=== PATIENT | female | born 1990 | race Caucasian/White ===

== ENCOUNTER 2018-03-17 11:15 | Inpatient (IN) | payer BC ==
--- NOTE | 2018-03-17 14:23 | US ---
Biophysical profile: Multiple real-time images were obtained. Comparison: Previous obstetrical ultrasounds are available, most recent exam is 03/16/18. Dates: Current ultrasound: BELINDA 04/08/18, gestational age 36 weeks 6 days Earliest ultrasound (11/29/17): BELINDA 04/16/18, gestational age 35 weeks 5 days presentation: Cephalic Placenta: Anterior Amniotic fluid: MALINI 15.0 cm Measurements: BPD: 9.09 cm - 37 weeks 0 days Head circumference: 32.92 cm - 37 weeks 4 days Abdominal circumference: 32.24 cm - 36 weeks 2 days Femur length: 7.07 cm - 36 weeks 2 days Estimated weight: 2927 g (6 lbs. 7 oz.), estimated weight at the 43rd percentile for age by current ultrasound Heart rate: 156 BPM Cervical length: Not seen, not measured Biophysical profile: movement 0, breathing movement 0, tone 0, amniotic fluid volume 2 Impression: 1. Single intrauterine fetus currently cephalic in presentation. Dates as noted above. 2. 2 out of 8 on biophysical profile. Diagnostic code #5 I have a technologist's note stating preliminary report given to nurse
[2018-03-17] MEDS ORDERED: Sodium Chloride 0.9% 10 ML Syringe FLUSH PRN (14:56)
[2018-03-17] MEDS ORDERED: Oxytocin/Lactated Ringers 10 UNIT/1,000 ML BAG IV SCH ×3 (15:00→18:10)
[2018-03-17] MEDS ORDERED: Lactated Ringers 1,000 ML IV SCH ×4 (15:00→23:15)
[2018-03-17] MEDS ORDERED: Nalbuphine 20 MG/ML 1 ML Syringe IVPUSH PRN (15:41)
[2018-03-17] MEDS ORDERED: Metoclopramide 10 MG/2 ML SDV IVPUSH ONE (15:41)
[2018-03-17] MEDS ORDERED: Citric Acid/Sodium Citrate Solution 30 ML Cup PO ONE (15:41)
[2018-03-17] MEDS ORDERED: Metoclopramide 10 MG/2 ML SDV ONE (15:41)
[2018-03-17] MEDS ORDERED: Citric Acid/Sodium Citrate Solution 30 ML Cup ONE (15:41)
--- NOTE | 2018-03-17 15:53 | PCM.PREANE ---
Preanesthetic Assessment - Anesthesia/Transfusion/Family Hx Anesthesia History: Prior Anesthesia Without Reaction Family History of Anesthesia Reaction: No Transfusion History: No Prior Transfusion(s) Intubation History: Unknown - Review of Systems General: No Symptoms Pulmonary: No Symptoms (Exercise induced asthma) Cardiovascular: No Symptoms (PIH) Gastrointestinal: No Symptoms (GERD), Constipation Neurological: No Symptoms Other: Reports: Thyroid Problems (hypothyroid), Sinus Problem (seasonal allergies), Anxiety - Physical Assessment NPO Status Date: 03/17/18 NPO Status Time: 11:00 Pulse: 78 O2 Sat by Pulse Oximetry: 99 Respiratory Rate: 20 Blood Pressure: 150/91 Temperature: 36.5 C Vital Signs: Last Vital Signs Temp 36.3 C 03/17/18 11:53 Pulse 78 03/17/18 14:01 Resp BP 150/91 H 03/17/18 14:01 Pulse Ox Height: 1.75 m Weight: 102.512 kg ASA Class: 2E Mental Status: Alert & Oriented x3 Airway Class: Mallampati = 2 Dentition: Reports: Normal Dentition, Caries Thyro-Mental Finger Breadths: 3 Mouth Opening Finger Breadths: 3 ROM/Head Extension: Full Lungs: Clear to Auscultation, Normal Respiratory Effort Cardiovascular: Regular Rate, Regular Rhythm, No Murmurs - Lab Values: Laboratory Last Values WBC 16.71 K/mm3 (3.98-10.04) H 03/17/18 15:10 RBC 3.90 M/mm3 (3.98-5.22) L 03/17/18 15:10 Hgb 11.3 gm/L (11.2-15.7) 03/17/18 15:10 Hct 33.6 % (34.1-44.9) L 03/17/18 15:10 MCV 86.2 fl (79.4-94.8) 03/17/18 15:10 MCH 29.0 pg (25.6-32.2) 03/17/18 15:10 MCHC 33.6 g/dl (32.2-35.5) 03/17/18 15:10 RDW Std Deviation 40.9 fL (36.4-46.3) 03/17/18 15:10 Plt Count 376 K/mm3 (182-369) H 03/17/18 15:10 MPV 9.6 fl (9.4-12.3) 03/17/18 15:10 Neut % (Auto) 70.7 % (34.0-71.1) 03/17/18 15:10 Lymph % (Auto) 17.1 % (19.3-51.7) L 03/17/18 15:10 [place] % (Auto) 9.4 % (4.7-12.5) 03/17/18 15:10 Eos % (Auto) 0.4 (0.7-5.8) L 03/17/18 15:10 Baso % (Auto) 0.1 % (0.1-1.2) 03/17/18 15:10 Neut # (Auto) 11.82 K/mm3 (1.56-6.13) H 03/17/18 15:10 Lymph # (Auto) 2.85 K/mm3 (1.18-3.74) 03/17/18 15:10 [place] # (Auto) 1.57 K/mm3 (0.24-0.36) H 03/17/18 15:10 Eos # (Auto) 0.06 K/mm3 (0.04-0.36) 03/17/18 15:10 Baso # (Auto) 0.02 K/mm3 (0.01-0.08) 03/17/18 15:10 Manual Slide Review Normal smear 03/17/18 15:10 Sodium 138 mEq/L (136-145) 03/17/18 15:10 Potassium 3.8 mEq/L (3.5-5.1) 03/17/18 15:10 Chloride 103 mEq/L (98-107) 03/17/18 15:10 Carbon Dioxide 21 mEq/L (21-32) 03/17/18 15:10 Anion Gap 17.8 (5-15) H 03/17/18 15:10 BUN 10 mg/dL (7-18) 03/17/18 15:10 Creatinine 0.8 mg/dL (0.55-1.02) 03/17/18 15:10 Est Cr Clr Drug Dosing 111.37 mL/min 03/17/18 15:10 Estimated GFR (MDRD) > 60 mL/min (>60) 03/17/18 15:10 BUN/Creatinine Ratio 12.5 (14-18) L 03/17/18 15:10 Glucose 90 mg/dL (74-106) 03/17/18 15:10 Calcium 9.7 mg/dL (8.5-10.1) 03/17/18 15:10 Total Bilirubin 0.3 mg/dL (0.2-1.0) 03/17/18 15:10 AST 20 U/L (15-37) 03/17/18 15:10 ALT 20 U/L (14-59) 03/17/18 15:10 Alkaline Phosphatase 102 U/L (46-116) 03/17/18 15:10 Total Protein 7.0 g/dl (6.4-8.2) 03/17/18 15:10 Albumin 3.1 g/dl (3.4-5.0) L 03/17/18 15:10 Globulin 3.9 gm/dL 03/17/18 15:10 Albumin/Globulin Ratio 0.8 (1-2) L 03/17/18 15:10 Above labs reviewed and noted and within acceptable ranges to proceed with procedure. - Allergies Allergies/Adverse Reactions: Allergies Allergy/AdvReac Type Severity Reaction Status Date / Time Penicillins Allergy Rash Verified 08/04/14 19:34 - Anesthesia Plan Pre-Op Medication Ordered: Beta Brianna Beta Brianna: Labetalol Med Last Dose Date: 03/17/18 Med Last Dose Time: 11:00 - Acknowledgements Anesthesia Type Planned: Spinal Pt an Appropriate Candidate for the Planned Anesthesia: Yes Alternatives and Risks of Anesthesia Discussed w Pt/Guardian: Yes Pt/Guardian Understands and Agrees with Anesthesia Plan: Yes PreAnesthesia Questionnaire Other Endocrine/Metabolic History: Hypothyroidism - HOME MEDS Home Medications: Home Meds Albuterol [Ventolin HFA] 2 puff INH ASDIRECTED PRN 08/04/14 [History] Levothyroxine 88 mcg PO ACBREAKFAST 08/04/14 [History] Loratadine [Claritin] 10 mg PO DAILY 08/04/14 [History] Labetalol [Normodyne] 200 mg PO TID 03/16/18 [History] - CURRENT (IN HOUSE) MEDS Current Meds: Current Medications Lactated Ringer's (Ringers, Lactated) 1,000 mls @ 40 mls/hr IV ASDIRECTED IRAM Oxytocin/Lactated Ringer's (Pitocin In Lr 10 Units/1,000 Ml) 10 unit in 1,000 mls @ 12 mls/hr IV TITRATE IRAM; Protocol Lactated Ringer's (Ringers, Lactated) 1,000 mls @ 125 mls/hr IV ASDIRECTED IRAM Oxytocin/Lactated Ringer's (Pitocin In Lr 10 Units/1,000 Ml) 10 unit in 1,000 mls @ 100 mls/hr IV ASDIRECTED IRAM Misoprostol (Cytotec) 25 mcg PO BID IRAM Nalbuphine HCl (Nubain) 10 mg IVPUSH Q2H PRN PRN Reason: pain Sodium Chloride (Saline Flush) 10 ml FLUSH ASDIRECTED PRN PRN Reason: Keep Vein Open Discontinued Medications Citric Acid/Sodium Citrate (Bicitra Solution) Confirm Administered Dose 30 ml .ROUTE .STK-MED ONE Stop: 03/17/18 15:42 Citric Acid/Sodium Citrate (Bicitra Solution) 30 ml PO ONETIME ONE Stop: 03/17/18 15:42 Metoclopramide HCl (Reglan) Confirm Administered Dose 10 mg .ROUTE .STK-MED ONE Stop: 03/17/18 15:42 Metoclopramide HCl (Reglan) 10 mg IVPUSH ONETIME ONE Stop: 03/17/18 15:42
--- NOTE | 2018-03-17 16:05 | PCM.LDHP ---
L&D History of Present Illness - General Date of Service: 03/17/18 Admit Problem/Dx: Patient Status Order with Admit Dx/Problem 03/17/18 14:30 Patient Status [ADT] Routine Admission Diagnosis/Problem Admission Diagnosis/Problem complications Source of Information: Patient History Limitations: Reports: No Limitations - History of Present Illness Introduction:: Corinna Polanco is a 27 year old at 35 weeks 3 days by LMP consistent with 11 week ultrasound who initially presented for continued monitoring in the setting of gestational hypertension. She had a biophysical profile and NST that returned with scores of 2/10 with the only points given for MALINI. Patient reports that she has had subjective decreased movement throughout the day today but had good movement last evening. She denies any contractions today. Denies any leaking of fluid or vaginal bleeding. Patient desired to proceed with delivery and desired section after given her options for delivery. Timing/Duration: Reports: getting worse ( monitoring becoming nonreassuring with BPP with NST score of 2/10) Improves with: Reports: None Worsens with: Reports: None Associated Symptoms: Denies: vaginal bleeding, vaginal discharge, vaginal fluid Present Illness Comments:: Corinna Polanco is a 27-year-old at 35 weeks 3 days by LMP consistent with 11 week ultrasound (BELINDA 04/18/2018) with nonreassuring monitoring. She has had routine care with Dr. Segura since 11 weeks gestational age. Review of her labs shows B- blood type with negative antibody screen. Her hematocrit was 37.6 with hemoglobin of 13.5 and platelets of 297 on 2017. She is rubella immune. Her RPR, hepatitis B surface antigen and HIV were all negative. Her urine culture was negative for urinary tract infection but did show contamination. Her gonorrhea and Chlamydia test were both negative. Her TSH was 2.134 on 09/27/2017. Her anatomy ultrasound was normal on 12/01/2017 but did show a low-lying placenta. On follow-up the placenta was in normal position and not low lying. Her 1 hour glucose test was normal at 97. Her hematocrit was 35.3 and hemoglobin of 12.0 with platelets of 299 on . She was given RhoGAM injection on 01/23/2018 due to her Rh- status. Her GBS was positive on evaluation from 03/16/2018. She started to have increased blood pressures at her appointment with Dr. Segura on 03/14/2018 and she was started on labetalol after evaluation. She was seen the next day on 03/15 and had an increase in dose of her labetalol to 200 mg 3 times daily. This is her first . Her has been complicated by: * Nonreassuring monitoring with gestational hypertension at 35 weeks gestational age * Rh- status with B- blood type. Received RhoGAM on 01/23/2018. * GBS positive on swab from 03/16/2018 * Hypothyroidism on levothyroxine 88 mcg daily - Related Data Allergies/Adverse Reactions: Allergies Allergy/AdvReac Type Severity Reaction Status Date / Time Penicillins Allergy Rash Verified 08/04/14 19:34 Home Medications: Home Meds Albuterol [Ventolin HFA] 2 puff INH ASDIRECTED PRN 08/04/14 [History] Levothyroxine 88 mcg PO ACBREAKFAST 08/04/14 [History] Loratadine [Claritin] 10 mg PO DAILY 08/04/14 [History] Labetalol [Normodyne] 200 mg PO TID 03/16/18 [History] Past Medical History : 1 Para: 0 Other Endocrine/Metabolic History: Hypothyroidism - Past Surgical History HEENT Surgical History: Reports: Naso-Sinus Surgery (Rhinoplasty for deviated septum), Tonsillectomy, Other (See Below) ([place] tooth extraction) Social & Family History - Tobacco Use Smoking Status *Q: Never Smoker - Tobacco Core Measures Tobacco Use/Smoking Within Last 30 Days: No Smokeless Tobacco Use in Last 30 Days: No - Alcohol Use Alcohol Use History: No - Recreational Drug Use Recreational Drug Use: No Drug Use in Last 12 Months: No - Living Situation & Occupation Living situation: Reports: , with Spouse H&P Review of Systems - Review of Systems: Review Of Systems: See Below General: Denies: Fever, Chills, Malaise, Weakness, Fatigue HEENT: Reports: Sinus Congestion. Denies: Headaches, Rhinitis, Post Nasal Drip , Sore Throat, Visual Changes Pulmonary: Denies: Shortness of Breath, Wheezing, Cough Cardiovascular: Denies: Chest Pain, Palpitations, Dyspnea on Exertion, Orthopnea Gastrointestinal: Reports: Constipation. Denies: Abdominal Pain, Diarrhea, Nausea, Vomiting Genitourinary: Denies: Dysuria, Frequency, Burning, Pain, Urgency Musculoskeletal: Denies: Back Pain, Joint Pain, Muscle Pain Skin: Denies: Rash, Lesions Psychiatric: Reports: Anxiety (Not requiring medications). Denies: Depression Hematologic/Lymphatic: Denies: Anemia L&D Exam - Exam Exam: See Below - Vital Signs Vital Signs: Last Vital Signs Temp 36.3 C 03/17/18 11:53 Pulse 78 03/17/18 15:52 Resp 20 03/17/18 15:52 BP 150/91 H 03/17/18 15:52 Pulse Ox 99 03/17/18 15:52 Weight: 102.512 kg - OB Specific Contraction Duration (sec): 30-45 Contraction Frequency (min): irregular Contraction Intensity: Mild Movement: Not Appreciated Heart Tones: Present Heart Tones per Min: 155 (No accelerations, occasional decelerations not in relation to contractions) Heart Rate (FHR) Variability: Minimal (0-5 bpm) Presentation: Vertex Estimated Weight: 6 pounds by Andrea's - Exam General: Alert, Oriented HEENT: Conjunctiva Clear, EOMI Neck: Supple, Trachea Midline Lungs: Clear to Auscultation, Normal Respiratory Effort Cardiovascular: Regular Rate, Regular Rhythm GI/Abdominal Exam: Soft, Non-Tender, No Distention, Other (gravid). No: Guarding, Rigid, Rebound Genitourinary: Other (Deferred pelvic exam) Extremities: Pedal Edema (1+) Skin: Warm, Dry, Intact Psychiatric: Alert, Normal Affect, Normal Mood - Patient Data Lab Results Last 24 hrs: Laboratory Results - last 24 hr 03/17/18 03/17/18 03/17/18 Range/Units 15:10 15:10 15:10 WBC 16.71 H (3.98-10.04) K/mm3 RBC 3.90 L (3.98-5.22) M/mm3 Hgb 11.3 (11.2-15.7) gm/L Hct 33.6 L (34.1-44.9) % MCV 86.2 (79.4-94.8) fl MCH 29.0 (25.6-32.2) pg MCHC 33.6 (32.2-35.5) g/dl RDW Std Deviation 40.9 (36.4-46.3) fL Plt Count 376 H (182-369) K/mm3 MPV 9.6 (9.4-12.3) fl Neut % (Auto) 70.7 (34.0-71.1) % Lymph % (Auto) 17.1 L (19.3-51.7) % [place] % (Auto) 9.4 (4.7-12.5) % Eos % (Auto) 0.4 L (0.7-5.8) Baso % (Auto) 0.1 (0.1-1.2) % Neut # (Auto) 11.82 H (1.56-6.13) K/mm3 Lymph # (Auto) 2.85 (1.18-3.74) K/mm3 [place] # (Auto) 1.57 H (0.24-0.36) K/mm3 Eos # (Auto) 0.06 (0.04-0.36) K/mm3 Baso # (Auto) 0.02 (0.01-0.08) K/mm3 Manual Slide Review Normal smear Sodium 138 (136-145) mEq/L Potassium 3.8 (3.5-5.1) mEq/L Chloride 103 (98-107) mEq/L Carbon Dioxide 21 (21-32) mEq/L Anion Gap 17.8 H (5-15) BUN 10 (7-18) mg/dL Creatinine 0.8 (0.55-1.02) mg/dL Est Cr Clr Drug Dosing 111.37 mL/min Estimated GFR (MDRD) > 60 (>60) mL/min BUN/Creatinine Ratio 12.5 L (14-18) Glucose 90 (74-106) mg/dL Calcium 9.7 (8.5-10.1) mg/dL Total Bilirubin 0.3 (0.2-1.0) mg/dL AST 20 (15-37) U/L ALT 20 (14-59) U/L Alkaline Phosphatase 102 (46-116) U/L Total Protein 7.0 (6.4-8.2) g/dl Albumin 3.1 L (3.4-5.0) g/dl Globulin 3.9 gm/dL Albumin/Globulin Ratio 0.8 L (1-2) Blood Type B NEGATIVE Gel Antibody Screen Positive Result Diagrams: 03/17/18 15:10 03/17/18 15:10 Imaging Impressions Last 24 hrs: Biophysical profile 04/20 with only points given for MALINI - Problem List (1) 35 weeks gestation of SNOMED Code(s): 40961967 ICD Code: Z3A.35 - 35 WEEKS GESTATION OF Status: Acute Current Visit: Yes (2) Non-reassuring electronic monitoring tracing SNOMED Code(s): 131186832 ICD Code: O76 - ABNLT IN HEART RATE AND RHYTHM COMP LABOR AND DELIVERY Status: Acute Current Visit: Yes (3) Abnormal test SNOMED Code(s): 048910163 ICD Code: O28.9 - UNSP ABNORMAL FINDINGS ON SCREENING OF MOTHER Status: Acute Current Visit: Yes (4) Hypothyroid SNOMED Code(s): 43620288 ICD Code: E03.9 - HYPOTHYROIDISM, UNSPECIFIED Status: Acute Current Visit : Yes (5) Gestational hypertension SNOMED Code(s): 446670779, 635212026 ICD Code: O13.9 - GESTATIONAL HTN W/O SIGNIFICANT PROTEINURIA, UNSP TRIMESTER Status: Acute Current Visit: Yes Problem List Initiated/Reviewed/Updated: Yes Orders Last 24hrs: Active Orders 24 hr Category Date Time Status Patient Status [ADT] Routine ADT 03/17/18 14:30 Active Communication Order [RC] ASDIRECTED Care 03/17/18 14:57 Active Communication Order [RC] ASDIRECTED Care 03/17/18 14:57 Active Communication Order [RC] ASDIRECTED Care 03/17/18 14:57 Active Communication Order [RC] ROUTINE Care 03/17/18 15:42 Active Monitoring [RC] INTERMITTENT Care 03/17/18 14:57 Active Non Stress Test [RC] PER UNIT ROUTINE Care 03/17/18 14:57 Active Notify Provider [RC] ASDIRECTED Care 03/17/18 14:57 Active Peripheral IV Care [RC] . DIRECTED Care 03/17/18 14:57 Active Procedure Site Prep Instruct [RC] ASDIRECTED Care 03/17/18 15:42 Active Vaginal Exam [RC] ASDIRECTED Care 03/17/18 14:57 Active Verify Patient Consent Obtain [RC] PER UNIT ROUTINE Care 03/17/18 15:42 Active Vital Signs [RC] ASDIRECTED Care 03/17/18 14:57 Active Clear Liquid Diet [DIET] Diet 03/17/18 Breakfast Active ANTIBODY IDENTIFICATION [BBK] Routine Lab 03/17/18 15:10 Results PROTEIN/CREATININE RATIO,URINE [URCHEM] Routine Lab 03/17/18 14:59 Ordered TYPE AND SCREEN [BBK] Routine Lab 03/17/18 15:10 Results Lactated Ringers [Ringers, Lactated] 1,000 ml Med 03/17/18 15:00 Active IV ASDIRECTED Lactated Ringers [Ringers, Lactated] 1,000 ml Med 03/17/18 15:45 Active IV ASDIRECTED Nalbuphine [Nubain] Med 03/17/18 15:41 Active 10 mg IVPUSH Q2H PRN Oxytocin/Lactated Ringers [Pitocin in LR 10 Units/1,000 Med 03/17/18 15:45 Active ML] 10 unit in 1,000 ml IV ASDIRECTED Oxytocin/Lactated Ringers [Pitocin in LR 10 Units/1,000 Med 03/17/18 15:00 Active ML] 10 unit in 1,000 ml IV TITRATE Sodium Chloride 0.9% [Saline Flush] Med 03/17/18 14:56 Active 10 ml FLUSH ASDIRECTED PRN miSOPROStol [Cytotec] Med 03/17/18 21:00 Active 25 mcg PO BID Peripheral IV Insertion Adult [OM.PC] Routine Oth 03/17/18 14:57 Ordered Peripheral IV Insertion Adult [OM.PC] Routine Oth 03/17/18 15:42 Ordered Schedule Procedure [COMM] Per Unit Routine Oth 03/17/18 15:42 Ordered Medication Orders Lactated Ringer's (Ringers, Lactated) 1,000 mls @ 40 mls/hr IV ASDIRECTED IRAM Oxytocin/Lactated Ringer's (Pitocin In Lr 10 Units/1,000 Ml) 10 unit in 1,000 mls @ 12 mls/hr IV TITRATE IRAM; Protocol Lactated Ringer's (Ringers, Lactated) 1,000 mls @ 125 mls/hr IV ASDIRECTED IRAM Oxytocin/Lactated Ringer's (Pitocin In Lr 10 Units/1,000 Ml) 10 unit in 1,000 mls @ 100 mls/hr IV ASDIRECTED IRAM Misoprostol (Cytotec) 25 mcg PO BID IRAM Nalbuphine HCl (Nubain) 10 mg IVPUSH Q2H PRN PRN Reason: pain Sodium Chloride (Saline Flush) 10 ml FLUSH ASDIRECTED PRN PRN Reason: Keep Vein Open Assessment/Plan Comment:: 27-year-old at 35 weeks 3 days by LMP with nonreassuring testing with BPP and NST score of 2/10 with only points given for MALINI. Discussed with patient that given she has had low testing score would recommend for delivery. Discussed options with patient including induction of labor with plan for vaginal delivery, contraction stress testing or urgent delivery and the patient desires to proceed with delivery. We will get everything in place for delivery. Discussed risks, benefits and alternatives for the section and patient desired to proceed with section. Consents were signed in the room on labor and delivery. Admit to inpatient following section for nonreassuring testing Continuous monitoring Place IV and have Lactated Ringer's at 125 ml/hr Nothing by mouth Activity as tolerated Plan for spinal for anesthesia Plans to breast-feed after delivery Will give Ancef 2 g IV prior to surgery if no reaction to test dose Anticipate delivery due to nonreassuring testing Aron Luna M.D. 4:14 PM 03/17/2018
[2018-03-17] MEDS ORDERED: ceFAZolin 1 GM Vial ONE (16:18)
[2018-03-17] MEDS ORDERED: Lidocaine 1% 4 ML ONE (16:18)
[2018-03-17] MEDS ORDERED: Morphine PF 1 MG/ML Amp ONE (16:18)
[2018-03-17] MEDS ORDERED: Oxytocin 10 Units/1 ML SDV ONE (16:18)
[2018-03-17] MEDS ORDERED: Bupivacaine 0.75%/D5W 2 ML Amp ONE (16:18)
[2018-03-17] MEDS ORDERED: Ketorolac 30 MG/ML SDV ONE (16:18)
[2018-03-17] MEDS ORDERED: Lactated Ringers 2,000 ML ONE (16:18)
[2018-03-17] MEDS ORDERED: Phenylephrine/Normal Saline 100 MCG/ML 10 ML Syringe ONE (16:18)
[2018-03-17] MEDS ORDERED: Ondansetron 4 MG/2 ML SDV ONE (16:18)
[2018-03-17] MEDS ORDERED: Bupivacaine 0.5% 30 ML SDV ONE (16:26)
[2018-03-17] MEDS ORDERED: fentaNYL 100 MCG/2 ML SDV IVPUSH PRN (16:39)
[2018-03-17] MEDS ORDERED: ePHEDrine 50 MG/ML SDV IVPUSH PRN ×2 (16:39→18:10)
[2018-03-17] MEDS ORDERED: Ondansetron 4 MG/2 ML SDV IVPUSH PRN (16:39)
[2018-03-17] MEDS ORDERED: HYDROmorphone 0.5 MG/0.5 ML Syringe IVPUSH PRN (16:39)
[2018-03-17] MEDS ORDERED: diphenhydrAMINE 50 MG/ML SDV IVPUSH PRN ×2 (16:39→18:10)
[2018-03-17] MEDS ORDERED: Phenylephrine 1 MG in Sodium Chloride 0.9% 10 ML IV SCH (16:45)
--- NOTE | 2018-03-17 17:30 | PCM.POSTAN ---
POST ANESTHESIA ASSESSMENT - MENTAL STATUS Mental Status: Alert - VITAL SIGNS Pulse Rate: 72 SaO2: 98 Resp Rate: 12 Blood Pressure: 128/80 Temperature: 36.8 C - RESPIRATORY Respiratory Status: Respiratory Rate WNL, Airway Patent, O2 Saturation Stable - CARDIOVASCULAR CV Status: Pulse Rate WNL, Blood Pressure Stable - GASTROINTESTINAL GI Status: No Symptoms - POST OP HYDRATION Hydration Status: Adequate & Stable
--- NOTE | 2018-03-17 17:46 | PCM.OPNOTE ---
- General Post-Op/Procedure Note Date of Surgery/Procedure: 03/17/18 Operative Procedure(s): Primary low transverse section with double layer closure Findings: Live female delivered in vertex presentation with vacuum assistance at 1646. Apgars of 8 and 9. Weight of 2740 g (6 lbs. 1 oz.). Normal-appearing uterus, bilateral fallopian tubes and ovaries. Pre Op Diagnosis: 35 weeks 3 days with abnormal testing with BPP/NST score of 2/10 and the patient desires primary section for delivery Post-Op Diagnosis: Same Anesthesia Technique: Spinal Primary Surgeon: Aron Luna Anesthesia Provider: Shahnaz Hager Flare Man: David Ruiz Flare Man: Glen Alfred (Mal Alfred PAS) Reason Flare Man Was Necessary: Patient safety and reduction of morbidity and mortality Role of Flare Man: Retraction and visualization of surgical field Pathology: Placenta Fluid Replacement, Intraop: 1,400 Output, Urine Amount: 150 EBL in mLs: 1,000 Complications: None Condition: Good Free Text/Narrative:: Procedure in Detail: The patient was seen on labor and delivery after she had abnormal testing with BPP/NST with a score of 2/10. Discussed the severity of these abnormal testing scores and risk associated with this. Discussed options including induction of labor for vaginal delivery, contraction stress testing to help and assist in decision or primary section. Patient desired to proceed with primary section and the risks , benefits and complications were discussed with the patient. The patient desired to proceed with section and appropriate consents were signed. The patient was taken to operating room #1. A Time Out was held and the patient was identified using 2 identifiers and the procedure was confirmed. The patient was given spinal anesthesia and was placed in dorsal supine position with leftward tilt. The patient was prepped and draped in the usual sterile manner. She was given a test dose of Ancef and tolerated this injection. She was given Ancef 2 g IV for antibiotic prophylaxis. The abdominal skin was tested and the spinal anesthesia was found to be adequate. The skin was injected with 0.5% marcaine for local anesthesia. A Pfannenstiel skin incision was made and carried down through the subcutaneous tissue to the fascia with the scapel. The fascia was nicked in the midline using a scalpel and the fascial incision was extended transversely with Kim scissors. The superior aspect of the fascia was grasped with Kimmie clamps and tented upwards. The fascia was from the underlying rectus muscle bluntly and sharply with Kim scissors. Attention was then turned to the inferior aspect of the fascia and was grasped using Kimmie clamps and tented upwards. The underlying rectus muscle was dissected off bluntly and sharply with Kim scissors. The peritoneum was identified and entered bluntly. The bladder blade was inserted and the lower uterine segment was identified. A low transverse uterine incision was made sharply with a scalpel and extended laterally bluntly. The infant's head was brought to the uterine incision, the bladder blade was removed and the infant was delivered atraumatically with use of bulb type vacuum extraction. The vacuum extractor had one pop off. On application of the bulb vacuum extractor the second time the infant's head was able to be delivered without difficulty. The vacuum pressure was within normal limits for the entirety of the use of the vacuum extractor. The vacuum extractor was applied for approximately 60 seconds total. On 03/17/2018 a live female infant was delivered in vertex position at 1646, wt of 2740 grams, 6 pounds and 1 ounces. APGARS were 8 & 9. The nose and mouth were suctioned with bulb suction, the cord was doubly clamped and cut and was transferred to the awaiting children's program coordinator. The placenta was removed intact and appeared normal with a three vessel cord. The uterus was exteriorized and the uterine cavity was cleaned using lap sponges. The hysterotomy was closed with a running locked suture of 0-Vicryl. A second suture of 0-Vicryl was used to imbricate the hysterotomy. The hysterotomy was noted to have some bleeding near the left corner of the hysterotomy. A [id number] suture with 0 Vicryl was placed and there continued be small amount of bleeding. A second [id number] suture was placed with 0 Vicryl and the bleeding was stopped at this time. The remainder of the hysterotomy was hemostatic. The uterus, tubes and ovaries appeared overall normal. The uterus was then returned into the abdominal cavity. The hysterotomy was noted to remain hemostatic inside the abdominal cavity. The fascia was noted to be hemostatic and the fascia was then reapproximated with running sutures of 0-Vicryl. The skin was reapproximated using 4-0 Monocryl and Steri-strips were applied over the incision. Instrument, sponge, and needle counts were correct prior to the abdominal closure and at the conclusion of the case.
[2018-03-17] MEDS ORDERED: Lanolin 100% Cream 7 GM Tube TOP PRN (18:10)
[2018-03-17] MEDS ORDERED: Magnesium Hydroxide 400 MG/5 ML Susp 30 ML Cup PO PRN (18:10)
[2018-03-17] MEDS ORDERED: Naloxone 0.4 MG/ML SDV IVPUSH PRN (18:10)
[2018-03-17] MEDS ORDERED: Ondansetron 4 MG/2 ML SDV IV PRN (18:10)
[2018-03-17] MEDS ORDERED: Misoprostol 25 MCG (1/4 of 100 MCG) Tab PO SCH (21:00)
[2018-03-17] MEDS: Ketorolac 30 MG/ML SDV IVPUSH SCH (23:10)
[2018-03-18] MEDS: Ketorolac 30 MG/ML SDV IVPUSH SCH ×2 (04:55→11:01)
[2018-03-18] MEDS: Docusate Sodium 100 MG Cap PO SCH ×3 (08:18→18:30)
[2018-03-18] MEDS: LEVOTHYROXINE 88 MCG PO SCH (08:30)
[2018-03-18] MEDS: Prenatal Multivitamin with Calcium/Folic Acid/Iron Tab PO SCH (08:37)
--- NOTE | 2018-03-18 10:57 | PCM.SN ---
- Free Text/Narrative Note: Post Operative Progress Note POD # 1 Subjective: Doing well overall. Not yet ambulating but has started at the bedside without difficulty. Lochia minimal. Styles draining clear urine. Not passing flatus at this time. Tolerating regular diet without nausea or vomiting. Pain controlled with IV medications. She has not yet transitioned to oral medications. Breast feeding with minimal difficulty. Objective: Vitals: Vital Signs - 24 hr 03/17/18 03/17/18 03/17/18 11:53 12:06 12:31 Temperature Temperature [ 36.3 C Temporal] Pulse, 89 82 Peripheral Pulse, 76 Peripheral [ Brachial] Respiratory Rate Blood Pressure Blood Pressure [Right Upper Arm] O2 Sat by Pulse Oximetry O2 Sat by Pulse Oximetry [Room Air] 03/17/18 03/17/18 03/17/18 13:01 13:30 14:01 Temperature Temperature [ Temporal] Pulse, 80 81 78 Peripheral Pulse, Peripheral [ Brachial] Respiratory Rate Blood Pressure 142/91 H 138/91 H 150/91 H Blood Pressure [Right Upper Arm] O2 Sat by Pulse Oximetry O2 Sat by Pulse Oximetry [Room Air] 03/17/18 03/17/18 03/17/18 14:30 15:00 15:30 Temperature Temperature [ Temporal] Pulse, 95 92 99 Peripheral Pulse, Peripheral [ Brachial] Respiratory Rate Blood Pressure 164/111 H 155/95 H 154/104 H Blood Pressure [Right Upper Arm] O2 Sat by Pulse Oximetry O2 Sat by Pulse Oximetry [Room Air] 03/17/18 03/17/18 03/17/18 16:02 16:04 17:20 Temperature 36.5 C Temperature [ 36.8 C Temporal] Pulse, 95 78 Peripheral Pulse, Peripheral [ Brachial] Respiratory 20 12 Rate Blood Pressure 150/91 H Blood Pressure 128/80 [Right Upper Arm] O2 Sat by Pulse 99 98 Oximetry O2 Sat by Pulse 98 Oximetry [Room Air] 03/17/18 03/17/18 03/17/18 17:30 17:30 17:45 Temperature 36.8 C Temperature [ Temporal] Pulse, 72 Peripheral Pulse, Peripheral [ Brachial] Respiratory 18 12 14 Rate Blood Pressure 128/80 Blood Pressure 131/76 128/81 [Right Upper Arm] O2 Sat by Pulse 98 98 98 Oximetry O2 Sat by Pulse Oximetry [Room Air] 03/17/18 03/17/1803/17/19 18:00 18:15 18:36 Temperature 36.6 C Temperature [ 36.9 C Temporal] Pulse, 63 Peripheral Pulse, Peripheral [ Brachial] Respiratory 20 16 Rate Blood Pressure 132/86 Blood Pressure 128/83 131/78 [Right Upper Arm] O2 Sat by Pulse 99 99 100 Oximetry O2 Sat by Pulse Oximetry [Room Air] 03/17/18 03/17/18 03/17/18 19:01 19:06 19:08 Temperature Temperature [ Temporal] Pulse, 74 74 81 Peripheral Pulse, Peripheral [ Brachial] Respiratory 14 Rate Blood Pressure 134/91 H 135/85 Blood Pressure [Right Upper Arm] O2 Sat by Pulse 100 100 100 Oximetry O2 Sat by Pulse Oximetry [Room Air] 03/17/18 03/17/18 03/17/18 20:00 21:00 22:00 Temperature 36.7 C Temperature [ Temporal] Pulse, 68 Peripheral Pulse, Peripheral [ Brachial] Respiratory 16 14 14 Rate Blood Pressure 138/83 Blood Pressure [Right Upper Arm] O2 Sat by Pulse 100 100 98 Oximetry O2 Sat by Pulse Oximetry [Room Air] 03/17/18 03/18/18 03/18/18 23:00 00:00 01:00 Temperature Temperature [ 37.0 C Temporal] Pulse, Peripheral Pulse, 64 Peripheral [ Brachial] Respiratory 15 14 13 Rate Blood Pressure Blood Pressure 129/67 [Right Upper Arm] O2 Sat by Pulse 99 98 100 Oximetry O2 Sat by Pulse Oximetry [Room Air] 03/18/18 03/18/18 03/18/18 02:00 03:00 04:00 Temperature Temperature [ Temporal] Pulse, Peripheral Pulse, Peripheral [ Brachial] Respiratory 14 15 16 Rate Blood Pressure Blood Pressure [Right Upper Arm] O2 Sat by Pulse 100 100 98 Oximetry O2 Sat by Pulse Oximetry [Room Air] 03/18/18 03/18/18 03/18/18 04:14 05:00 06:00 Temperature 37.3 C Temperature [ Temporal] Pulse, 73 Peripheral Pulse, Peripheral [ Brachial] Respiratory 14 14 15 Rate Blood Pressure 126/85 Blood Pressure [Right Upper Arm] O2 Sat by Pulse 100 99 100 Oximetry O2 Sat by Pulse Oximetry [Room Air] 03/18/18 03/18/18 03/18/18 07:00 08:00 08:28 Temperature Temperature [ 37.7 C Temporal] Pulse, 79 Peripheral Pulse, Peripheral [ Brachial] Respiratory 16 16 Rate Blood Pressure 131/82 Blood Pressure [Right Upper Arm] O2 Sat by Pulse 100 100 100 Oximetry O2 Sat by Pulse Oximetry [Room Air] 03/18/18 03/18/18 09:00 10:00 Temperature Temperature [ Temporal] Pulse, Peripheral Pulse, Peripheral [ Brachial] Respiratory 16 16 Rate Blood Pressure Blood Pressure [Right Upper Arm] O2 Sat by Pulse 98 99 Oximetry O2 Sat by Pulse Oximetry [Room Air] Physical Exam General: Alert and oriented, no acute distress Lungs: Clear to auscultation bilaterally Heart: Regular rate and rhythm Abdomen: Soft, minimal appropriate tenderness, mildly distended, fundus midline , nontender and below the umbilicus Incision: Clean, dry and intact, no erythema, bleeding or drainage Extremities: 1+ edema in lower extremities to knees bilaterally Labs: Laboratory Tests 03/17/18 03/17/18 03/17/18 Range/Units 15:10 15:10 15:10 WBC 16.71 H (3.98-10.04) K/mm3 RBC 3.90 L (3.98-5.22) M/mm3 Hgb 11.3 (11.2-15.7) gm/L Hct 33.6 L (34.1-44.9) % MCV 86.2 (79.4-94.8) fl MCH 29.0 (25.6-32.2) pg MCHC 33.6 (32.2-35.5) g/dl RDW Std Deviation 40.9 (36.4-46.3) fL Plt Count 376 H (182-369) K/mm3 MPV 9.6 (9.4-12.3) fl Neut % (Auto) 70.7 (34.0-71.1) % Lymph % (Auto) 17.1 L (19.3-51.7) % Porter % (Auto) 9.4 (4.7-12.5) % Eos % (Auto) 0.4 L (0.7-5.8) Baso % (Auto) 0.1 (0.1-1.2) % Neut # (Auto) 11.82 H (1.56-6.13) K/mm3 Lymph # (Auto) 2.85 (1.18-3.74) K/mm3 Porter # (Auto) 1.57 H (0.24-0.36) K/mm3 Eos # (Auto) 0.06 (0.04-0.36) K/mm3 Baso # (Auto) 0.02 (0.01-0.08) K/mm3 Manual Slide Review Normal smear Sodium 138 (136-145) mEq/L Potassium 3.8 (3.5-5.1) mEq/L Chloride 103 (98-107) mEq/L Carbon Dioxide 21 (21-32) mEq/L Anion Gap 17.8 H (5-15) BUN 10 (7-18) mg/dL Creatinine 0.8 (0.55-1.02) mg/dL Est Cr Clr Drug Dosing 111.37 mL/min Estimated GFR (MDRD) > 60 (>60) mL/min BUN/Creatinine Ratio 12.5 L (14-18) Glucose 90 (74-106) mg/dL Calcium 9.7 (8.5-10.1) mg/dL Total Bilirubin 0.3 (0.2-1.0) mg/dL AST 20 (15-37) U/L ALT 20 (14-59) U/L Alkaline Phosphatase 102 (46-116) U/L Total Protein 7.0 (6.4-8.2) g/dl Albumin 3.1 L (3.4-5.0) g/dl Globulin 3.9 gm/dL Albumin/Globulin Ratio 0.8 L (1-2) Ur Random Creatinine (30.0-125.0) mg/dL U Random Total Protein (0.0-11.8) mg/dL Protein/Creatinin Ratio (0-149) mg/g Blood Type B NEGATIVE Gel Antibody Screen Positive Screen RhIG Candidate? Rhogam Indicated 03/17/18 03/17/18 03/18/18 Range/Units 16:10 21:45 06:30 WBC 23.65 H 19.42 H (3.98-10.04) K/mm3 RBC 3.46 L 3.25 L (3.98-5.22) M/mm3 Hgb 10.0 L 9.3 L (11.2-15.7) gm/L Hct 30.1 L 28.3 L (34.1-44.9) % MCV 87.0 87.1 (79.4-94.8) fl MCH 28.9 28.6 (25.6-32.2) pg MCHC 33.2 32.9 (32.2-35.5) g/dl RDW Std Deviation 40.3 40.6 (36.4-46.3) fL Plt Count 330 319 (182-369) K/mm3 MPV 9.5 9.7 (9.4-12.3) fl Neut % (Auto) 77.1 H 74.6 H (34.0-71.1) % Lymph % (Auto) 11.9 L 13.9 L (19.3-51.7) % Porter % (Auto) 9.6 9.4 (4.7-12.5) % Eos % (Auto) 0.3 L 0.4 L (0.7-5.8) Baso % (Auto) 0.1 0.2 (0.1-1.2) % Neut # (Auto) 18.22 H 14.50 H (1.56-6.13) K/mm3 Lymph # (Auto) 2.82 2.70 (1.18-3.74) K/mm3 Porter # (Auto) 2.28 H 1.82 H (0.24-0.36) K/mm3 Eos # (Auto) 0.07 0.08 (0.04-0.36) K/mm3 Baso # (Auto) 0.03 0.03 (0.01-0.08) K/mm3 Manual Slide Review Abnormal smear Abnormal smear Sodium (136-145) mEq/L Potassium (3.5-5.1) mEq/L Chloride (98-107) mEq/L Carbon Dioxide (21-32) mEq/L Anion Gap (5-15) BUN (7-18) mg/dL Creatinine (0.55-1.02) mg/dL Est Cr Clr Drug Dosing mL/min Estimated GFR (MDRD) (>60) mL/min BUN/Creatinine Ratio (14-18) Glucose (74-106) mg/dL Calcium (8.5-10.1) mg/dL Total Bilirubin (0.2-1.0) mg/dL AST (15-37) U/L ALT (14-59) U/L Alkaline Phosphatase (46-116) U/L Total Protein (6.4-8.2) g/dl Albumin (3.4-5.0) g/dl Globulin gm/dL Albumin/Globulin Ratio (1-2) Ur Random Creatinine 19.4 L (30.0-125.0) mg/dL U Random Total Protein 12.1 H (0.0-11.8) mg/dL Protein/Creatinin Ratio 623.7 H (0-149) mg/g Blood Type Gel Antibody Screen Screen RhIG Candidate? Rhogam Indicated 03/18/18 03/18/18 Range/Units 06:30 06:30 WBC (3.98-10.04) K/mm3 RBC (3.98-5.22) M/mm3 Hgb (11.2-15.7) gm/L Hct (34.1-44.9) % MCV (79.4-94.8) fl MCH (25.6-32.2) pg MCHC (32.2-35.5) g/dl RDW Std Deviation (36.4-46.3) fL Plt Count (182-369) K/mm3 MPV (9.4-12.3) fl Neut % (Auto) (34.0-71.1) % Lymph % (Auto) (19.3-51.7) % Porter % (Auto) (4.7-12.5) % Eos % (Auto) (0.7-5.8) Baso % (Auto) (0.1-1.2) % Neut # (Auto) (1.56-6.13) K/mm3 Lymph # (Auto) (1.18-3.74) K/mm3 Porter # (Auto) (0.24-0.36) K/mm3 Eos # (Auto) (0.04-0.36) K/mm3 Baso # (Auto) (0.01-0.08) K/mm3 Manual Slide Review Sodium 139 (136-145) mEq/L Potassium 3.9 (3.5-5.1) mEq/L Chloride 105 (98-107) mEq/L Carbon Dioxide 25 (21-32) mEq/L Anion Gap 12.9 (5-15) BUN 10 (7-18) mg/dL Creatinine 0.7 (0.55-1.02) mg/dL Est Cr Clr Drug Dosing 127.28 mL/min Estimated GFR (MDRD) > 60 (>60) mL/min BUN/Creatinine Ratio 14.3 (14-18) Glucose 69 L (74-106) mg/dL Calcium 8.3 L (8.5-10.1) mg/dL Total Bilirubin 0.4 (0.2-1.0) mg/dL AST 22 (15-37) U/L ALT 16 (14-59) U/L Alkaline Phosphatase 91 (46-116) U/L Total Protein 5.3 L (6.4-8.2) g/dl Albumin 2.3 L (3.4-5.0) g/dl Globulin 3.0 gm/dL Albumin/Globulin Ratio 0.8 L (1-2) Ur Random Creatinine (30.0-125.0) mg/dL U Random Total Protein (0.0-11.8) mg/dL Protein/Creatinin Ratio (0-149) mg/g Blood Type B NEGATIVE Gel Antibody Screen Positive Screen 0 ros/5 flds - neg RhIG Candidate? Yes Rhogam Indicated Yes, baby rh pos H ASSESSMENT: 27-year-old female s/p vacuum-assisted primary section POD #1 for nonreassuring testing with BPP/NST score of 2/10, complicated by preeclampsia without severe features, Rh- status, GBS positive and hypothyroidism PLAN: Doing well Breast feeding with minimal difficulty. Assist as needed Incision healing well. Continue to keep clean and dry. Lochia minimal. Continue to monitor for appropriate lochia. Continue routine post-operative care Patient with B- blood type and infant with O+ blood type. She is due for RhoGAM today. Patient with minimal output in the first 4-5 hours after section with only 30 mL of output. Her hematocrit at that time was 30.1 and this was felt to be falsely elevated secondary to third spacing in the setting of preeclampsia. She was given an IV fluid bolus and her urine output increased to 1200 mL over the next 12 hours. Repeat CBC in the morning showed more appropriate drop in hematocrit with a value of 28.3. We will continue to monitor and will repeat CBC in the morning of postop day #2. Patient was good kidney function with creatinine of 0.7 this morning. Anticipate discharge home tomorrow but this may depend on status Aron Luna MD 10:56 AM 03/18/2018
[2018-03-18] MEDS: Acetaminophen/oxyCODONE 325-5 MG Tab PO PRN ×2 (14:05→21:41)
[2018-03-18] MEDS ORDERED: Simethicone 80 MG Tab.Chew PO PRN (15:16)
[2018-03-18] MEDS: Ibuprofen 600 MG Tab PO PRN (18:32)
[2018-03-19] MEDS: Ibuprofen 600 MG Tab PO PRN ×4 (02:42→23:23)
[2018-03-19] MEDS: Acetaminophen/oxyCODONE 325-5 MG Tab PO PRN ×3 (04:40→19:08)
[2018-03-19] MEDS: Docusate Sodium 100 MG Cap PO SCH ×2 (06:22→19:08)
[2018-03-19] MEDS: LEVOTHYROXINE 88 MCG PO SCH (06:22)
--- NOTE | 2018-03-19 08:29 | PCM.SN ---
- Free Text/Narrative Note: Post Operative Progress Note POD # 2 Subjective: Doing well overall. Ambulating without difficulty. Lochia minimal. Voiding without difficulty. Passing flatus in increasing amounts. She reports that her abdominal distention was improved this morning prior to breakfast but increased afterwards. She has not had a bowel movement yet. She reports that she is having coffee this morning which typically helps with her having a bowel movement. Tolerating regular diet without nausea or vomiting. Pain controlled with oral medications. Pumping breast milk for feeding with minimal difficulty. She reports that she is having difficulty with latching for breast-feeding. Objective: Vitals: Vital Signs - 24 hr 03/18/18 03/18/18 03/18/18 09:00 10:00 11:00 Temperature Temperature [ Temporal] Pulse, Peripheral Respiratory 16 16 16 Rate Blood Pressure O2 Sat by Pulse 98 99 98 Oximetry 03/18/18 03/18/18 03/18/18 12:00 12:25 13:00 Temperature Temperature [ 37.8 C Temporal] Pulse, 91 Peripheral Respiratory 16 16 Rate Blood Pressure 124/68 O2 Sat by Pulse 98 99 98 Oximetry 03/18/18 03/18/18 03/18/18 14:00 15:00 16:00 Temperature Temperature [ Temporal] Pulse, Peripheral Respiratory 18 16 16 Rate Blood Pressure O2 Sat by Pulse 99 97 100 Oximetry 03/18/18 03/18/18 03/18/18 17:00 17:30 19:44 Temperature Temperature [ 37.1 C Temporal] Pulse, 109 H 96 Peripheral Respiratory 18 Rate Blood Pressure 146/99 H 136/82 O2 Sat by Pulse 98 98 97 Oximetry 03/18/18 03/19/18 19:45 02:45 Temperature 37.7 C 37.0 C Temperature [ Temporal] Pulse, 92 78 Peripheral Respiratory 14 Rate Blood Pressure 136/82 131/82 O2 Sat by Pulse 97 98 Oximetry Physical Exam General: Alert and oriented, no acute distress Lungs: Clear to auscultation bilaterally Heart: Regular rate and rhythm Abdomen: Soft, minimal appropriate tenderness, mildly distended, positive tympanic abdomen, fundus midline, nontender and below the umbilicus Incision: Clean, dry and intact, no erythema, bleeding or drainage Extremities: Trace edema in lower extremities to mid shins bilaterally Labs: Laboratory Results - last 24 hr 03/18/18 Range/Units 06:30 Blood Type B NEGATIVE Gel Antibody Screen Positive Screen 0 ros/5 flds - neg RhIG Candidate? Yes Rhogam Indicated Yes, baby rh pos H ASSESSMENT: 27-year-old female s/p vacuum-assisted primary section POD #2 for nonreassuring testing with BPP/NST score of 2/10, complicated by preeclampsia without severe features, Rh- status, GBS positive and hypothyroidism PLAN: Doing well Pumping breast milk for feeding with minimal difficulty. having difficulty latching at this time. Assist as needed Incision healing well. Continue to keep clean and dry. Lochia minimal. Continue to monitor for appropriate lochia. Continue routine post-operative care Patient with B- blood type and with O+ blood type. Status post RhoGAM on postop day #1. We will repeat CBC this morning with heart rate in the 90s to low 100s Anticipate discharge home tomorrow Aron Luna MD 8:28 AM 03/19/2018
[2018-03-19] MEDS: Prenatal Multivitamin with Calcium/Folic Acid/Iron Tab PO SCH (08:59)
[2018-03-20] MEDS: Acetaminophen/oxyCODONE 325-5 MG Tab PO PRN ×3 (02:52→13:16)
[2018-03-20] MEDS: LEVOTHYROXINE 88 MCG PO SCH (07:27)
[2018-03-20] MEDS: Prenatal Multivitamin with Calcium/Folic Acid/Iron Tab PO SCH (08:26)
[2018-03-20] MEDS ORDERED: Docusate Sodium 100 MG Cap PO SCH (09:00)
[2018-03-20] MEDS ORDERED: Labetalol 100 MG Tab PO SCH (09:15)
--- NOTE | 2018-03-20 09:31 | PCM.SN ---
- Free Text/Narrative Note: Post Operative Progress Note POD # 3 Subjective: Doing well overall. Ambulating without difficulty. Lochia minimal. Voiding without difficulty. Passing flatus in increasing amounts. She reports that her abdominal distention has improved since yesterday. Not feeling any bloating abdominal pain. She has not had a bowel movement yet. Tolerating regular diet without nausea or vomiting. Pain improving and controlled with oral medications. Pumping breast milk and breast feeding with minimal difficulty. She reports that she is having difficulty with infant latching for breast-feeding and is continuing to work with the net application support specialist. Objective: Vitals: Vital Signs - 24 hr 03/19/18 03/19/18 03/20/18 14:50 20:09 02:54 Temperature 36.6 C 36.6 C 36.6 C Pulse, 107 H 91 92 Peripheral Respiratory 14 14 14 Rate Blood Pressure 141/86 H 137/74 139/89 O2 Sat by Pulse 98 97 97 Oximetry Physical Exam General: Alert and oriented, no acute distress Lungs: Clear to auscultation bilaterally Heart: Regular rate and rhythm Abdomen: Soft, minimal appropriate tenderness, mildly distended, fundus midline , nontender and below the umbilicus Incision: Clean, dry and intact, no erythema, bleeding or drainage with Steri- strips in place Extremities: Trace edema in lower extremities to mid shins bilaterally Labs: Laboratory Results - last 24 hr 03/19/18 Range/Units 09:10 WBC 20.64 H (3.98-10.04) K/mm3 RBC 3.45 L (3.98-5.22) M/mm3 Hgb 9.8 L (11.2-15.7) gm/L Hct 30.2 L (34.1-44.9) % MCV 87.5 (79.4-94.8) fl MCH 28.4 (25.6-32.2) pg MCHC 32.5 (32.2-35.5) g/dl RDW Std Deviation 41.0 (36.4-46.3) fL Plt Count 358 (182-369) K/mm3 MPV 9.2 L (9.4-12.3) fl Neut % (Auto) 73.7 H (34.0-71.1) % Lymph % (Auto) 15.9 L (19.3-51.7) % Thayer % (Auto) 7.0 (4.7-12.5) % Eos % (Auto) 1.4 (0.7-5.8) Baso % (Auto) 0.1 (0.1-1.2) % Neut # (Auto) 15.22 H (1.56-6.13) K/mm3 Lymph # (Auto) 3.29 (1.18-3.74) K/mm3 Thayer # (Auto) 1.44 H (0.24-0.36) K/mm3 Eos # (Auto) 0.28 (0.04-0.36) K/mm3 Baso # (Auto) 0.02 (0.01-0.08) K/mm3 Manual Slide Review Abnormal smear ASSESSMENT: 27-year-old female s/p vacuum-assisted primary section POD #3 for nonreassuring testing with BPP/NST score of 2/10, complicated by preeclampsia without severe features, Rh- status, GBS positive and hypothyroidism PLAN: Doing well Pumping breast milk for feeding with minimal difficulty. having difficulty latching at this time. Assist as needed Incision healing well. Continue to keep clean and dry. Lochia minimal. Continue to monitor for appropriate lochia. Continue routine post-operative care Patient with B- blood type and infant with O+ blood type. Status post RhoGAM on postop day #1. Patient with continued elevations of the blood pressure greater than 130 mmHg systolic or 100 mmHg diastolic. Recommend for patient to start taking labetalol 200 mg twice daily until she is seen in the clinic to decide if she should continue the medication. Discussed with patient that she can try to use milk of magnesia to help with having a bowel movement. Discharge home today Aron Luna MD 9:26 AM 03/20/2018
--- NOTE | 2018-03-20 09:38 | PCM.DCSUM1 ---
Discharge Summary - Hospital Course Free Text/Narrative:: Date of Surgery/Procedure: 03/17/18 Operative Procedure(s): Primary low transverse section with double layer closure Findings: Live female infant delivered in vertex presentation with vacuum assistance at 1646. Apgars of 8 and 9. Weight of 2740 g (6 lbs. 1 oz.). Normal-appearing uterus, bilateral fallopian tubes and ovaries. Pre Op Diagnosis: 35 weeks 3 days with abnormal testing with BPP/NST score of 2/10 and the patient desires primary section for delivery Post-Op Diagnosis: Same Anesthesia Technique: Spinal Primary Surgeon: Aron Luna Anesthesia Provider: Shahnaz Hager Foundation Drill Operator Helper: David Ruiz Foundation Drill Operator Helper: Glen Alfred (Mal Alfred PAS) Reason Foundation Drill Operator Helper Was Necessary: Patient safety and reduction of morbidity and mortality Role of Foundation Drill Operator Helper: Retraction and visualization of surgical field Pathology: Placenta Fluid Replacement, Intraop: 1,400 Output, Urine Amount: 150 EBL in mLs: 1,000 Complications: None Condition: Good Free Text/Narrative:: Procedure in Detail: The patient was seen on labor and delivery after she had abnormal testing with BPP/NST with a score of 2/10. Discussed the severity of these abnormal testing scores and risk associated with this. Discussed options including induction of labor for vaginal delivery, contraction stress testing to help and assist in decision or primary section. Patient desired to proceed with primary section and the risks , benefits and complications were discussed with the patient. The patient desired to proceed with section and appropriate consents were signed. The patient was taken to operating room #1. A Time Out was held and the patient was identified using 2 identifiers and the procedure was confirmed. The patient was given spinal anesthesia and was placed in dorsal supine position with leftward tilt. The patient was prepped and draped in the usual sterile manner. She was given a test dose of Ancef and tolerated this injection. She was given Ancef 2 g IV for antibiotic prophylaxis. The abdominal skin was tested and the spinal anesthesia was found to be adequate. The skin was injected with 0.5% marcaine for local anesthesia. A Pfannenstiel skin incision was made and carried down through the subcutaneous tissue to the fascia with the scapel. The fascia was nicked in the midline using a scalpel and the fascial incision was extended transversely with Kim scissors. The superior aspect of the fascia was grasped with Kimmie clamps and tented upwards. The fascia was from the underlying rectus muscle bluntly and sharply with Kim scissors. Attention was then turned to the inferior aspect of the fascia and was grasped using Kimmie clamps and tented upwards. The underlying rectus muscle was dissected off bluntly and sharply with Kim scissors. The peritoneum was identified and entered bluntly. The bladder blade was inserted and the lower uterine segment was identified. A low transverse uterine incision was made sharply with a scalpel and extended laterally bluntly. The 's head was brought to the uterine incision, the bladder blade was removed and the infant was delivered atraumatically with use of bulb type vacuum extraction. The vacuum extractor had one pop off. On application of the bulb vacuum extractor the second time the infant's head was able to be delivered without difficulty. The vacuum pressure was within normal limits for the entirety of the use of the vacuum extractor. The vacuum extractor was applied for approximately 60 seconds total. On 03/17/2018 a live female infant was delivered in vertex position at 1646, wt of 2740 grams, 6 pounds and 1 ounces. APGARS were 8 & 9. The nose and mouth were suctioned with bulb suction, the cord was doubly clamped and cut and infant was transferred to the awaiting president practicing urologist. The placenta was removed intact and appeared normal with a three vessel cord. The uterus was exteriorized and the uterine cavity was cleaned using lap sponges. The hysterotomy was closed with a running locked suture of 0-Vicryl. A second suture of 0-Vicryl was used to imbricate the hysterotomy. The hysterotomy was noted to have some bleeding near the left corner of the hysterotomy. A sgkkvd-um-fzbhq suture with 0 Vicryl was placed and there continued be small amount of bleeding. A second jxcfxr-am-nfhmr suture was placed with 0 Vicryl and the bleeding was stopped at this time. The remainder of the hysterotomy was hemostatic. The uterus, tubes and ovaries appeared overall normal. The uterus was then returned into the abdominal cavity. The hysterotomy was noted to remain hemostatic inside the abdominal cavity. The fascia was noted to be hemostatic and the fascia was then reapproximated with running sutures of 0-Vicryl. The skin was reapproximated using 4-0 Monocryl and Steri-strips were applied over the incision. Instrument, sponge, and needle counts were correct prior to the abdominal closure and at the conclusion of the case. HPI Initial Comments: Date of Surgery/Procedure: 03/17/18 Operative Procedure(s): Primary low transverse section with double layer closure Findings: Live female delivered in vertex presentation with vacuum assistance at 1646. Apgars of 8 and 9. Weight of 2740 g (6 lbs. 1 oz.). Normal-appearing uterus, bilateral fallopian tubes and ovaries. Pre Op Diagnosis: 35 weeks 3 days with abnormal testing with BPP/NST score of 2/10 and the patient desires primary section for delivery Post-Op Diagnosis: Same Anesthesia Technique: Spinal Primary Surgeon: Aron Luna Anesthesia Provider: Shahnaz Hager Foundation Drill Operator Helper: David Ruiz Foundation Drill Operator Helper: Glen Alfred Frederick, PAS) Reason Foundation Drill Operator Helper Was Necessary: Patient safety and reduction of morbidity and mortality Role of Foundation Drill Operator Helper: Retraction and visualization of surgical field Pathology: Placenta Fluid Replacement, Intraop: 1,400 Output, Urine Amount: 150 EBL in mLs: 1,000 Complications: None Condition: Good Free Text/Narrative:: Procedure in Detail: The patient was seen on labor and delivery after she had abnormal testing with BPP/NST with a score of 2/10. Discussed the severity of these abnormal testing scores and risk associated with this. Discussed options including induction of labor for vaginal delivery, contraction stress testing to help and assist in decision or primary section. Patient desired to proceed with primary section and the risks , benefits and complications were discussed with the patient. The patient desired to proceed with section and appropriate consents were signed. The patient was taken to operating room #1. A Time Out was held and the patient was identified using 2 identifiers and the procedure was confirmed. The patient was given spinal anesthesia and was placed in dorsal supine position with leftward tilt. The patient was prepped and draped in the usual sterile manner. She was given a test dose of Ancef and tolerated this injection. She was given Ancef 2 g IV for antibiotic prophylaxis. The abdominal skin was tested and the spinal anesthesia was found to be adequate. The skin was injected with 0.5% marcaine for local anesthesia. A Pfannenstiel skin incision was made and carried down through the subcutaneous tissue to the fascia with the scapel. The fascia was nicked in the midline using a scalpel and the fascial incision was extended transversely with Kim scissors. The superior aspect of the fascia was grasped with Kimmie clamps and tented upwards. The fascia was from the underlying rectus muscle bluntly and sharply with Kim scissors. Attention was then turned to the inferior aspect of the fascia and was grasped using Kimmie clamps and tented upwards. The underlying rectus muscle was dissected off bluntly and sharply with Kim scissors. The peritoneum was identified and entered bluntly. The bladder blade was inserted and the lower uterine segment was identified. A low transverse uterine incision was made sharply with a scalpel and extended laterally bluntly. The 's head was brought to the uterine incision, the bladder blade was removed and the was delivered atraumatically with use of bulb type vacuum extraction. The vacuum extractor had one pop off. On application of the bulb vacuum extractor the second time the infant's head was able to be delivered without difficulty. The vacuum pressure was within normal limits for the entirety of the use of the vacuum extractor. The vacuum extractor was applied for approximately 60 seconds total. On 03/17/2018 a live female was delivered in vertex position at 1646, wt of 2740 grams, 6 pounds and 1 ounces. APGARS were 8 & 9. The nose and mouth were suctioned with bulb suction, the cord was doubly clamped and cut and was transferred to the awaiting president practicing urologist. The placenta was removed intact and appeared normal with a three vessel cord. The uterus was exteriorized and the uterine cavity was cleaned using lap sponges. The hysterotomy was closed with a running locked suture of 0-Vicryl. A second suture of 0-Vicryl was used to imbricate the hysterotomy. The hysterotomy was noted to have some bleeding near the left corner of the hysterotomy. A suywhg-el-wwclp suture with 0 Vicryl was placed and there continued be small amount of bleeding. A second xfnleo-of-uitkf suture was placed with 0 Vicryl and the bleeding was stopped at this time. The remainder of the hysterotomy was hemostatic. The uterus, tubes and ovaries appeared overall normal. The uterus was then returned into the abdominal cavity. The hysterotomy was noted to remain hemostatic inside the abdominal cavity. The fascia was noted to be hemostatic and the fascia was then reapproximated with running sutures of 0-Vicryl. The skin was reapproximated using 4-0 Monocryl and Steri-strips were applied over the incision. Instrument, sponge, and needle counts were correct prior to the abdominal closure and at the conclusion of the case. Brief History: Date of Surgery/Procedure: 03/17/18. Operative Procedure(s): Primary low transverse section with double layer closure. Findings: Live female delivered in vertex presentation with vacuum assistance at 1646. Apgars of 8 and 9. Weight of 2740 g (6 lbs. 1 oz.). Normal-appearing uterus, bilateral fallopian tubes and ovaries. Pre Op Diagnosis: 35 weeks 3 days with abnormal testing with BPP/NST score of 2/10 and the patient desires primary section for delivery. Post-Op Diagnosis: Same. Anesthesia Technique: Spinal. Primary Surgeon: Aron Luna. Anesthesia Provider: Shahnaz Hager. Foundation Drill Operator Helper: David Ruiz. Foundation Drill Operator Helper: Glen Alfred (Mal Alfred PAS). Reason Foundation Drill Operator Helper Was Necessary : Patient safety and reduction of morbidity and mortality. Role of Foundation Drill Operator Helper: Retraction and visualization of surgical field. Pathology: Placenta. Fluid Replacement, Intraop: 1,400. Output, Urine Amount: 150. EBL in mLs: 1,000. Complications: None. Condition: Good. Free Text/Narrative:: Procedure in Detail: The patient was seen on labor and delivery after she had abnormal testing with BPP/NST with a score of 2/10. Discussed the severity of these abnormal testing scores and risk associated with this. Discussed options including induction of labor for vaginal delivery, contraction stress testing to help and assist in decision or primary section. Patient desired to proceed with primary section and the risks , benefits and complications were discussed with the patient. The patient desired to proceed with section and appropriate consents were signed. The patient was taken to operating room #1. A Time Out was held and the patient was identified using 2 identifiers and the procedure was confirmed. The patient was given spinal anesthesia and was placed in dorsal supine position with leftward tilt. The patient was prepped and draped in the usual sterile manner. She was given a test dose of Ancef and tolerated this injection. She was given Ancef 2 g IV for antibiotic prophylaxis. The abdominal skin was tested and the spinal anesthesia was found to be adequate. The skin was injected with 0.5% marcaine for local anesthesia. A Pfannenstiel skin incision was made and carried down through the subcutaneous tissue to the fascia with the scapel. The fascia was nicked in the midline using a scalpel and the fascial incision was extended transversely with Kim scissors. The superior aspect of the fascia was grasped with Kimmie clamps and tented upwards. The fascia was from the underlying rectus muscle bluntly and sharply with Kim scissors. Attention was then turned to the inferior aspect of the fascia and was grasped using Kimmie clamps and tented upwards. The underlying rectus muscle was dissected off bluntly and sharply with Kim scissors. The peritoneum was identified and entered bluntly. The bladder blade was inserted and the lower uterine segment was identified. A low transverse uterine incision was made sharply with a scalpel and extended laterally bluntly. The 's head was brought to the uterine incision, the bladder blade was removed and the was delivered atraumatically with use of bulb type vacuum extraction. The vacuum extractor had one pop off. On application of the bulb vacuum extractor the second time the 's head was able to be delivered without difficulty. The vacuum pressure was within normal limits for the entirety of the use of the vacuum extractor. The vacuum extractor was applied for approximately 60 seconds total. On 03/17/2018 a live female was delivered in vertex position at 1646, wt of 2740 grams, 6 pounds and 1 ounces. APGARS were 8 & 9. The nose and mouth were suctioned with bulb suction, the cord was doubly clamped and cut and was transferred to the awaiting president practicing urologist. The placenta was removed intact and appeared normal with a three vessel cord. The uterus was exteriorized and the uterine cavity was cleaned using lap sponges. The hysterotomy was closed with a running locked suture of 0- Vicryl. A second suture of 0-Vicryl was used to imbricate the hysterotomy. The hysterotomy was noted to have some bleeding near the left corner of the hysterotomy. A yahxkh-vh-upnvg suture with 0 Vicryl was placed and there continued be small amount of bleeding. A second fkwoxz-ka-ldvkf suture was placed with 0 Vicryl and the bleeding was stopped at this time. The remainder of the hysterotomy was hemostatic. The uterus, tubes and ovaries appeared overall normal. The uterus was then returned into the abdominal cavity. The hysterotomy was noted to remain hemostatic inside the abdominal cavity. The fascia was noted to be hemostatic and the fascia was then reapproximated with running sutures of 0-Vicryl. The skin was reapproximated using 4-0 Monocryl and Steri-strips were applied over the incision. Instrument, sponge, and needle counts were correct prior to the abdominal closure and at the conclusion of the case. Diagnosis: Stroke: No - Discharge Data Discharge Date: 03/20/18 Discharge Disposition: Home, Self-Care 01 Condition: Good - Discharge Diagnosis/Problem(s) (1) 35 weeks gestation of SNOMED Code(s): 46181377 ICD Code: Z3A.35 - 35 WEEKS GESTATION OF Status: Acute Current Visit: Yes (2) Non-reassuring electronic monitoring tracing SNOMED Code(s): 628948529 ICD Code: O76 - ABNLT IN HEART RATE AND RHYTHM COMP LABOR AND DELIVERY Status: Acute Current Visit: Yes (3) Abnormal test SNOMED Code(s): 170814315 ICD Code: O28.9 - UNSP ABNORMAL FINDINGS ON SCREENING OF MOTHER Status: Acute Current Visit: Yes (4) Hypothyroid SNOMED Code(s): 96386594 ICD Code: E03.9 - HYPOTHYROIDISM, UNSPECIFIED Status: Acute Current Visit : Yes (5) GBS (group B Streptococcus carrier), +RV culture, currently SNOMED Code(s): 6468630592690, 566274751, 7577842629450 ICD Code: O99.820 - STREPTOCOCCUS B CARRIER STATE COMPLICATING Status: Acute Current Visit: Yes (6) delivery delivered SNOMED Code(s): 313620753 ICD Code: O82 - ENCOUNTER FOR DELIVERY WITHOUT INDICATION Status: Acute Current Visit: Yes (7) Preeclampsia SNOMED Code(s): 096390808 ICD Code: O14.90 - UNSPECIFIED PRE-ECLAMPSIA, UNSPECIFIED TRIMESTER Status : Acute Current Visit: Yes - Patient Summary/Data Operative Procedure(s) Performed: Primary low transverse section with double layer closure Complications: None Consults: None Hospital Course: Corinna Polanco was admitted for primary section in the setting of abnormal testing with BPP/NST score of 2/10. She was taken back to the OR and given spinal injection for anesthesia. She was given 2 g Ancef for antibiotic prophylaxis. She was prepped and draped in the normal fashion. On she had a vacuum-assisted delivery of a live female at 1646. Apgars of 8 and 9. Weight of 2740 g (6 lbs. 1 oz.). She was closed in a normal fashion. There were no complications with the procedure. Please see the operative report for full details. Her post operative course was uneventful. Her pain was well controlled and she had minimal lochia. She was ambulating, tolerating a regular diet and voiding normally. She was passing flatus and has not had a bowel movement. She was pumping breast milk and breast feeding with some difficulty with infant having difficulty latching. She was afebrile and her hematocrit was 30.2 on POD #2. She desired to be discharged home on the morning of POD #3. Her blood type is B- and infant has O + blood type and she received RhoGAM prior to discharge. - Patient Instructions Diet: Regular Diet as Tolerated Activity: Apply Ice, As Tolerated, No Lifting Over 20 Pounds Activity, Other: Nothing in the vagina for 6 weeks. Driving: Do Not Drive (While taking narcotic medications or having significant pain that would limit sudden movements.) Showering/Bathing: May Shower Wound/Incision Care: Keep Operative Site/Wound Site Clean and Dry Notify Provider of: Fever, Increased Pain, Swelling and Redness, Drainage, Nausea and/or Vomiting Other/Special Instructions: Please contact your physician's office if you note any bleeding or pus coming from the abdominal incision. Please contact your physician's office if you have heavy vaginal bleeding enough to soak a pad in less than an hour for several hours. Monitor for any signs of an infection in the breasts with severe pain or redness of the breast. - Discharge Plan *PRESCRIPTION DRUG MONITORING PROGRAM REVIEWED*: Yes *COPY OF PRESCRIPTION DRUG MONITORING REPORT IN PATIENT ELVI: No (No records available) Prescriptions/Med Rec: Acetaminophen/oxyCODONE [Percocet 325-5 MG] 1 - 2 tab PO Q6H PRN #30 tablet PRN Reason: Pain Home Medications: Home Meds Levothyroxine 88 mcg PO ACBREAKFAST 08/04/14 [History] Loratadine [Claritin] 10 mg PO DAILY PRN 08/04/14 [History] Labetalol [Normodyne] 200 mg PO TID 03/16/18 [History] Acetaminophen/oxyCODONE [Percocet 325-5 MG] 1 - 2 tab PO Q6H PRN #30 tablet 10/29 [Rx] Docusate Sodium [Colace] 100 mg PO BID cap 03/20/18 [Rx] Ibuprofen [Motrin] 600 mg PO Q6H PRN tablet 03/20/18 [Rx] Labetalol [Normodyne] 200 mg PO BID tablet 03/20/18 [Rx] Lanolin [Lansinoh HPA] 1 applic TOP ASDIRECTED PRN tube 03/20/18 [Rx] Vit with Ca/FA/Iron [ Plus Iron] 1 each PO DAILY tablet [Rx] Simethicone 80 mg PO Q6H PRN tab.chew 03/20/18 [Rx] Patient Handouts: Delivery, Care After Referrals: Ezio Segura MD [Primary Care Provider] - (Follow-up in 1 week for blood pressure check in the clinic.) - Discharge Summary/Plan Comment DC Time >30 min.: No - Patient Data Vitals - Most Recent: Last Vital Signs Temp 37.5 C 03/20/18 08:33 Pulse 108 H 03/20/18 08:33 Resp 16 03/20/18 08:33 BP 142/83 H 03/20/18 08:33 Pulse Ox 99 03/20/18 08:33 Weight - Most Recent: 102.512 kg Lab Results - Last 24 hrs: Laboratory Results - last 24 hr 03/19/18 Range/Units 09:10 Manual Slide Review Abnormal smear Med Orders - Current: Current Medications Diphenhydramine HCl (Benadryl) 25 mg IVPUSH Q6H PRN PRN Reason: Itching or Nausea Docusate Sodium (Colace) 100 mg PO BID IRAM Last Admin: 03/20/18 08:26 Dose: 100 mg Emollient Ointment (Lansinoh Hpa) 0 gm TOP ASDIRECTED PRN PRN Reason: Sore Nipples Ephedrine Sulfate (Ephedrine Sulfate) 5 mg IVPUSH SEECOMMENT PRN PRN Reason: Other Oxytocin/Lactated Ringer's (Pitocin In Lr 10 Units/1,000 Ml) 10 unit in 1,000 mls @ 100 mls/hr IV .CONTINUOUS [facility] Lactated Ringer's (Ringers, Lactated) 1,000 mls @ 125 mls/hr IV ASDIRECTED [facility] Last Admin: 03/17/18 23:15 Dose: 125 mls/hr Ibuprofen (Motrin) 600 mg PO Q6H PRN PRN Reason: mild pain or fever Last Admin: 03/19/18 23:23 Dose: 600 mg Labetalol HCl (Normodyne) 200 mg PO BID [facility] Levothyroxine Sodium (Synthroid) 88 mcg PO ACBREAKFAST [facility] Last Admin: 03/20/18 07:27 Dose: 88 mcg Magnesium Hydroxide (Milk Of Magnesia) 30 ml PO BEDTIME PRN PRN Reason: Constipation Naloxone HCl (Narcan) 0.1 mg IVPUSH SEECOMMENT PRN PRN Reason: Respiratory Depression Ondansetron HCl (Zofran) 4 mg IV Q8H PRN PRN Reason: Nausea/Vomiting Oxycodone/Acetaminophen (Percocet 325-5 Mg) 1 tab PO Q6H PRN PRN Reason: Pain (moderate 4-6) Last Admin: 03/20/18 07:48 Dose: 1 tab Oxycodone/Acetaminophen (Percocet 325-5 Mg) 2 tab PO Q6H PRN PRN Reason: Pain (severe 7-10) Last Admin: 03/20/18 02:52 Dose: 2 tab Prenat Multivit/Ems Manager/Iron/Folic Ac ( Plus Iron) 1 each PO DAILY [facility] Last Admin: 03/20/18 08:26 Dose: 1 each Simethicone (Simethicone) 80 mg PO Q6H PRN PRN Reason: bloating and abd discomfort Last Admin: 03/19/18 06:22 Dose: 80 mg Discontinued Medications Bupivacaine HCl (Marcaine 0.5%) Confirm Administered Dose 30 ml .ROUTE .[facility] ONE Stop: 03/17/18 16:27 Last Admin: 03/17/18 16:41 Dose: 20 ml Bupivacaine HCl/Dextrose (Marcaine 0.75% Spinal) Confirm Administered Dose 2 ml .ROUTE .[facility] ONE Stop: 03/17/18 16:19 Cefazolin Sodium (Ancef) Confirm Administered Dose 2 gm .ROUTE .[facility] ONE Stop: 03/17/18 16:19 Citric Acid/Sodium Citrate (Bicitra Solution) Confirm Administered Dose 30 ml .ROUTE .[facility] ONE Stop: 03/17/18 15:42 Last Admin: 03/17/18 23:22 Dose: Not Given Citric Acid/Sodium Citrate (Bicitra Solution) 30 ml PO ONETIME ONE Stop: 03/17/18 15:42 Last Admin: 03/17/18 15:54 Dose: 30 ml Diphenhydramine HCl (Benadryl) 25 mg IVPUSH Q6H PRN PRN Reason: pruritis Docusate Sodium (Colace) 100 mg PO Q12H IRAM Last Admin: 03/19/18 19:08 Dose: 100 mg Ephedrine Sulfate (Ephedrine Sulfate) 5 mg IVPUSH ASDIRECTED PRN PRN Reason: Hypotension Fentanyl (Sublimaze) 50 mcg IVPUSH Q5M PRN PRN Reason: Pain Hydromorphone HCl (Dilaudid) 0.5 mg IVPUSH Q15M PRN PRN Reason: severe pain Lactated Ringer's (Ringers, Lactated) 1,000 mls @ 40 mls/hr IV ASDIRECTED IRAM Last Admin: 03/17/18 14:30 Dose: 40 mls/hr Oxytocin/Lactated Ringer's (Pitocin In Lr 10 Units/1,000 Ml) 10 unit in 1,000 mls @ 12 mls/hr IV TITRATE IRAM; Protocol Lactated Ringer's (Ringers, Lactated) 1,000 mls @ 125 mls/hr IV ASDIRECTED IRAM Oxytocin/Lactated Ringer's (Pitocin In Lr 10 Units/1,000 Ml) 10 unit in 1,000 mls @ 100 mls/hr IV ASDIRECTED IRAM Lidocaine HCl (Xylocaine-Mpf 1%) Confirm Administered Dose 4 mls @ as directed .ROUTE .[facility] ONE Stop: 03/17/18 16:19 Lactated Ringer's (Ringers, Lactated) Confirm Administered Dose 2,000 mls @ as directed .ROUTE .[facility] ONE Stop: 03/17/18 16:19 Phenylephrine HCl 1 mg/ Sodium (Chloride) 10.1 mls @ 1 mls/sec IV TITRATE IRAM; Protocol Lactated Ringer's (Ringers, Lactated) 1,000 mls @ 125 mls/hr IV ASDIRECTED IRAM Stop: 03/18/18 02:09 Last Infusion: 03/17/18 22:00 Dose: 500 mls/hr Ketorolac Tromethamine (Toradol) Confirm Administered Dose 30 mg .ROUTE .[facility] ONE Stop: 03/17/18 16:19 Ketorolac Tromethamine (Toradol) 30 mg IVPUSH Q6H [facility] Stop: 03/18/18 11:01 Last Admin: 03/18/18 11:01 Dose: 30 mg Metoclopramide HCl (Reglan) Confirm Administered Dose 10 mg .ROUTE .[facility]-MED ONE Stop: 03/17/18 15:42 Last Admin: 03/17/18 23:22 Dose: Not Given Metoclopramide HCl (Reglan) 10 mg IVPUSH ONETIME ONE Stop: 03/17/18 15:42 Last Admin: 03/17/18 15:54 Dose: 10 mg Misoprostol (Cytotec) 25 mcg PO BID [facility] Morphine Sulfate (Duramorph Pf) Confirm Administered Dose 1 mg .ROUTE .[facility]-MED ONE Stop: 03/17/18 16:19 Nalbuphine HCl (Nubain) 10 mg IVPUSH Q2H PRN PRN Reason: pain Ondansetron HCl (Zofran) Confirm Administered Dose 4 mg .ROUTE .[facility]-MED ONE Stop: 03/17/18 16:19 Ondansetron HCl (Zofran) 4 mg IVPUSH ONETIME PRN PRN Reason: Nausea/Vomiting Oxytocin (Pitocin) Confirm Administered Dose 10 unit .ROUTE .[facility]-MED ONE Stop: 03/17/18 16:19 Phenylephrine HCl (Phenylephrine In Ns 100 Mcg/Ml) Confirm Administered Dose 1 mg .ROUTE .[facility]-MED ONE Stop: 03/17/18 16:19 Sodium Chloride (Saline Flush) 10 ml FLUSH ASDIRECTED PRN PRN Reason: Keep Vein Open
[2018-03-20 14:23] VITALS: BP 137/80
== END 2018-03-20 14:27 | disposition home or self-care (01) | DRG 540 ==
LOC: JD.OBCHECK 11:15 → JD.OB 11:16 → JD.OBCHECK 14:30 → JD.OB 14:30 → OBSVTOIN 16:46 → JD.OB 16:48
PROVIDERS: ADMIT Obstetrics & Gynecology; ATTEND Obstetrics & Gynecology
PROC: 10D00Z1 Extraction of Products of Conception, Low, Open Approach (ICD-10-PCS; principal; 2018-03-17)
PROC: 3E0234Z Introduction of Serum, Toxoid and Vaccine into Muscle, Percutaneous Approach (ICD-10-PCS; 2018-03-18)
DX: O28.8 Other abnormal findings on antenatal screening of mother (principal); O76 Abnormality in fetal heart rate and rhythm complicating labor and delivery; Z3A.35 35 weeks gestation of pregnancy; Z37.0 Single live birth; O99.284 Endocrine, nutritional and metabolic diseases complicating childbirth; E03.9 Hypothyroidism, unspecified; O99.824 Streptococcus B carrier state complicating childbirth; O14.94 Unspecified pre-eclampsia, complicating childbirth; O26.893 Other specified pregnancy related conditions, third trimester; Z67.21 Type B blood, Rh negative; O13.4 Gestational [pregnancy-induced] hypertension without significant proteinuria, complicating childbirth; O36.8130 Decreased fetal movements, third trimester, not applicable or unspecified; Z88.0 Allergy status to penicillin; Z79.899 Other long term (current) drug therapy; O99.344 Other mental disorders complicating childbirth; F41.9 Anxiety disorder, unspecified; O99.62 Diseases of the digestive system complicating childbirth; K21.9 Gastro-esophageal reflux disease without esophagitis; K59.00 Constipation, unspecified
CPT/HCPCS: 01961; 36415; 59025; 76816; 76819; 76819-26; 80053; 82570; 84156; 85025; 85461; 86850; 86870; 86900; 86901; 94762; A9270-GY; J0690; J1885; J2001; J2274; J2370; J2405; J2590; J2765; J2790; J3490; J7120

== ENCOUNTER 2021-11-29 19:29 | Emergency (ER) | payer BC ==
[2021-11-29 19:56] VITALS: BP 162/102; PULSE 80
[2021-11-29] MEDS ORDERED: Ondansetron 4 MG/2 ML SDV IVPUSH ONE (20:25)
[2021-11-29] MEDS ORDERED: Sodium Chloride 0.9% 10 ML Syringe FLUSH PRN (20:25)
[2021-11-29] MEDS ORDERED: Sodium Chloride 0.9% 1,000 ML IV SCH (20:30)
[2021-11-29 21:16] LABS: ESTIMATED GFR 88 mL/min (>60)
[2021-11-29] MEDS ORDERED: Sodium Chloride 0.9% 10 ML Syringe FLUSH ONE (22:01)
[2021-11-29] MEDS ORDERED: Iopamidol 612 MG/ML 100 ML Bottle IVPUSH ONE (22:01)
== END 2021-11-29 22:48 | disposition home or self-care (01) ==
LOC: JD.ED 19:29
DX: R10.11 Right upper quadrant pain (principal); J45.909 Unspecified asthma, uncomplicated; E03.9 Hypothyroidism, unspecified; Z88.0 Allergy status to penicillin; Z79.899 Other long term (current) drug therapy; Z86.16 Personal history of COVID-19
CPT/HCPCS: 36415; 74177; 80053; 81001; 81025; 83690; 85025; 86140; 96360; 99284; J3490; J7030; Q9967

== ENCOUNTER 2022-07-16 17:58 | Emergency (ER) | payer BC ==
[2022-07-16 18:12] VITALS: BP 167/106; PULSE 99
[2022-07-16] MEDS ORDERED: Sodium Chloride 0.9% 10 ML Syringe FLUSH PRN (18:13)
[2022-07-16 18:36] LABS: BASOPHILS ABSOLUTE AUTO 0.02 K/mm3 (0.01-0.08); BASOPHILS PERCENT AUTO 0.2 % (0.1-1.2); EOSINOPHILS PERCENT AUTO 3.5 (0.7-5.8); HEMOGLOBIN 14.6 gm/dl (11.2-15.7); IMMATURE GRAN ABSOLUTE AUTO 0.01 K/mm3 (0.00-0.10); IMMATURE GRAN PERCENT AUTO 0.1 % (<=1.0); LYMPHOCYTES ABSOLUTE AUTO 2.62 K/mm3 (1.18-3.74); LYMPHOCYTES PERCENT AUTO 30.9 % (19.3-51.7); MEAN CORPUSCULAR HEMOGLOBIN 30.3 pg (25.6-32.2); MEAN CORPUSCULAR HGB CONC 35.6 g/dl (32.2-35.5); MEAN CORPUSCULAR VOLUME 85.1 fl (79.4-94.8); MEAN PLATELET VOLUME 9.2 fl (9.4-12.3); MONOCYTES ABSOLUTE AUTO 0.66 K/mm3 (0.24-0.36); MONOCYTES PERCENT AUTO 7.8 % (4.7-12.5); NEUTROPHILS ABSOLUTE AUTO 4.88 K/mm3 (1.56-6.13); NEUTROPHILS PERCENT AUTO 57.5 % (34.0-71.1); PLATELET COUNT,PLT 243 K/mm3 (182-369); RED BLOOD CELL COUNT 4.82 M/mm3 (3.98-5.22); WHITE BLOOD CELL COUNT,WBC 8.49 K/mm3 (3.98-10.04)
[2022-07-16 18:54] LABS: INR 1.02; PROTHROMBIN TIME 10.9 SECONDS (9.7-12.0)
[2022-07-16 18:56] LABS: PTT,PARTIAL THROMBOPLSTIN TIME 24.3 SECONDS (21.7-31.4)
[2022-07-16 19:03] LABS: D-DIMER QUANTITATIVE 0.65 mg/L (0.19-0.50)
[2022-07-16 19:08] LABS: A/G RATIO 1.4 (1-2); ALANINE AMINOTRANSFERASE,ALT 57 U/L (14-59); ALBUMIN 4.5 g/dl (3.4-5.0); ALKALINE PHOSPHATASE 44 U/L (46-116); ANION GAP 10.7 (5-15); ASPARTATE AMNIOTRANSFERASE,AST 30 U/L (15-37); BILIRUBIN TOTAL 1.2 mg/dL (0.2-1.0); BLOOD UREA NITROGEN,BUN 13 mg/dL (7-18); BUN/CREATININE RATIO 16.3 (14-18); CALCIUM 9.9 mg/dL (8.5-10.1); CARBON DIOXIDE,CO2 28 mEq/L (21-32); CHLORIDE,CL 101 mEq/L (98-107); CREATININE 0.8 mg/dL (0.55-1.02); EST CRCL DRUG DOSING (CG) 102.78 mL/min; ESTIMATED GFR 101 mL/min (>60); GLUCOSE RANDOM 97 mg/dL (70-99); MAGNESIUM 1.6 mg/dL (1.8-2.4); POTASSIUM,K 3.7 mEq/L (3.5-5.1); PROTEIN TOTAL,TP 7.7 g/dl (6.4-8.2); SODIUM,NA 136 mEq/L (136-145)
[2022-07-16 19:11] LABS: TROPONIN I HIGH SENSITIVITY < 4 pg/mL (<=51)
== END 2022-07-16 19:30 | disposition home or self-care (01) ==
LOC: JD.ED 17:58
DX: R07.89 Other chest pain (principal); J45.909 Unspecified asthma, uncomplicated; E03.9 Hypothyroidism, unspecified; Z79.899 Other long term (current) drug therapy; Z86.16 Personal history of COVID-19; Z88.0 Allergy status to penicillin; Z88.1 Allergy status to other antibiotic agents
CPT/HCPCS: 36415; 80053; 83735; 84443; 84484; 85025; 85379; 85610; 85730; 93005; 93010; 99284; 99285

== ENCOUNTER 2022-08-15 18:47 | Emergency (ER) | payer BC ==
[2022-08-15] MEDS ORDERED: Iopamidol 755 Mg/ML 100 ML Bottle IVPUSH ONE (19:49)
[2022-08-15] MEDS ORDERED: Sodium Chloride 0.9% 100 ML IV SCH (20:00)
[2022-08-15 20:02] LABS: BASOPHILS ABSOLUTE AUTO 0.02 K/mm3 (0.01-0.08); BASOPHILS PERCENT AUTO 0.2 % (0.1-1.2); EOSINOPHILS ABSOLUTE AUTO 0.21 K/mm3 (0.04-0.36); EOSINOPHILS PERCENT AUTO 2.3 (0.7-5.8); HEMATOCRIT 41.2 % (34.1-44.9); HEMOGLOBIN 14.5 gm/dl (11.2-15.7); IMMATURE GRAN ABSOLUTE AUTO 0.01 K/mm3 (0.00-0.10); IMMATURE GRAN PERCENT AUTO 0.1 % (<=1.0); LYMPHOCYTES PERCENT AUTO 26.6 % (19.3-51.7); MEAN CORPUSCULAR HEMOGLOBIN 30.1 pg (25.6-32.2); MEAN CORPUSCULAR HGB CONC 35.2 g/dl (32.2-35.5); MEAN CORPUSCULAR VOLUME 85.7 fl (79.4-94.8); MEAN PLATELET VOLUME 9.2 fl (9.4-12.3); MONOCYTES PERCENT AUTO 6.6 % (4.7-12.5); NEUTROPHILS ABSOLUTE AUTO 5.79 K/mm3 (1.56-6.13); NEUTROPHILS PERCENT AUTO 64.2 % (34.0-71.1); PLATELET COUNT,PLT 262 K/mm3 (182-369); RED BLOOD CELL COUNT 4.81 M/mm3 (3.98-5.22); WHITE BLOOD CELL COUNT,WBC 9.03 K/mm3 (3.98-10.04)
[2022-08-15 20:21] LABS: A/G RATIO 1.4 (1-2); ALBUMIN 4.3 g/dl (3.4-5.0); ANION GAP 10.8 (5-15); BUN/CREATININE RATIO 15.6 (14-18); CALCIUM 8.9 mg/dL (8.5-10.1); CREATININE 0.9 mg/dL (0.55-1.02); EST CRCL DRUG DOSING (CG) 91.36 mL/min; POTASSIUM,K 3.8 mEq/L (3.5-5.1); PROTEIN TOTAL,TP 7.3 g/dl (6.4-8.2)
[2022-08-16 03:40] VITALS: BP 138/96; PULSE 87
== END 2022-08-15 20:39 | disposition home or self-care (01) ==
LOC: JD.ED 18:47
DX: R79.1 Abnormal coagulation profile (principal); J45.909 Unspecified asthma, uncomplicated; E03.9 Hypothyroidism, unspecified; Z88.0 Allergy status to penicillin; Z88.1 Allergy status to other antibiotic agents; Z79.899 Other long term (current) drug therapy; Z86.16 Personal history of COVID-19
CPT/HCPCS: 36415; 71275; 80053; 85025; 93005; 99285; J3490; Q9967; 93010; 99284

== ENCOUNTER 2025-01-16 15:24 | Day surgery (SDC) | payer BC ==
[2025-01-16] MEDS ORDERED: Sodium Chloride 0.9% 10 ML Syringe FLUSH PRN (15:36)
[2025-01-16 15:43] LABS: BASOPHILS ABSOLUTE AUTO 0.1 K/mm3 (0.0-0.2); BASOPHILS PERCENT AUTO 0.4 % (0.0-1.0); EOSINOPHILS ABSOLUTE AUTO 0.3 K/mm3 (0.0-0.4); EOSINOPHILS PERCENT AUTO 2.2 % (0.0-6.0); IMMATURE GRAN ABSOLUTE AUTO 0.07 K/mm3 (0.00-0.05); IMMATURE GRAN PERCENT AUTO 0.5 % (0.0-0.4); LYMPHOCYTES ABSOLUTE AUTO 2.6 K/mm3 (1.0-4.8); LYMPHOCYTES PERCENT AUTO 18.6 % (24.0-44.0); MEAN PLATELET VOLUME 9.0 fl (9.4-12.3); MONOCYTES ABSOLUTE AUTO 1.0 K/mm3 (0.0-0.8); MONOCYTES PERCENT AUTO 7.1 % (0.0-8.0); NEUTROPHILS ABSOLUTE AUTO 9.8 K/mm3 (1.8-7.7); NEUTROPHILS PERCENT AUTO 71.2 % (41.0-71.0); NRBC ABSOLUTE 0.00 (0.00-0.02); NRBC PERCENT 0.0 % (0.0-0.2); PLATELET COUNT,PLT 287 K/mm3 (150-400); RED BLOOD CELL COUNT 4.84 M/mm3 (4.10-5.30); WHITE BLOOD CELL COUNT,WBC 13.73 K/mm3 (3.9-11.3)
[2025-01-16 16:30] LABS: A/G RATIO 1.1 (1-2); ALANINE AMINOTRANSFERASE,ALT 23.0 U/L (14-59); ASPARTATE AMNIOTRANSFERASE,AST 15.0 U/L (15-37); BILIRUBIN TOTAL 0.9 mg/dL (0.2-1.0); BLOOD UREA NITROGEN,BUN 6.0 mg/dL (7-18); CARBON DIOXIDE,CO2 26.0 mEq/L (21-32); CHLORIDE,CL 103.0 mEq/L (98-107); CREATININE 0.7 mg/dL (0.55-1.02); EST CRCL DRUG DOSING (CG) 119.46 mL/min; ESTIMATED GFR 117.0 mL/min (>60); GLUCOSE RANDOM 116.0 mg/dL (70-99); POTASSIUM,K 3.9 mEq/L (3.5-5.1); PROTEIN TOTAL,TP 7.6 g/dl (6.4-8.2); SODIUM,NA 140.0 mEq/L (136-145)
[2025-01-16] MEDS ORDERED: Lactated Ringers 1,000 ML ONE (17:57)
[2025-01-16] MEDS ORDERED: Midazolam 1 MG/ML 2 ML SDV ONE (17:57)
[2025-01-16] MEDS ORDERED: Lactated Ringers 1,000 ML IV SCH (18:00)
[2025-01-16] MEDS ORDERED: propofoL 1,000 MG/100 ML 100 ML ONE (18:05)
[2025-01-16] MEDS ORDERED: fentaNYL 250 MCG/5 ML SDV ONE (18:06)
[2025-01-16] MEDS ORDERED: Succinylcholine 200 MG/10 ML MDV ONE (18:10)
[2025-01-16] MEDS ORDERED: dexmedeTOMIDine HCl 200 MCG/2 ML SDV ONE (18:41)
[2025-01-16] MEDS ORDERED: Ondansetron 4 MG/2 ML SDV ONE (18:48)
[2025-01-16] MEDS ORDERED: Dexamethasone 4 MG/ML 5 ML MDV ONE (18:48)
[2025-01-16] MEDS ORDERED: Ketorolac 30 MG/ML SDV ONE (18:58)
[2025-01-16] MEDS ORDERED: droPERidol 2.5 MG/ML SDV IV PRN (19:17)
[2025-01-16] MEDS ORDERED: fentaNYL 100 MCG/2 ML SDV IVPUSH PRN (19:17)
[2025-01-16 19:58] VITALS: BP 124/72; PULSE 88
== END 2025-01-16 20:26 | disposition home or self-care (01) ==
LOC: JD.ED 15:24 → JD.SDS 17:57
PROVIDERS: ATTEND Obstetrics & Gynecology
DX: O03.1 Delayed or excessive hemorrhage following incomplete spontaneous abortion (principal); E03.9 Hypothyroidism, unspecified; Z88.0 Allergy status to penicillin; Z88.1 Allergy status to other antibiotic agents; Z79.890 Hormone replacement therapy; Z79.899 Other long term (current) drug therapy
CPT/HCPCS: 36415; 59812; 76817; 80053; 84702; 85025; 86900; 86901; 96360; 96361; 96372; 99285; A9270; J0330; J1100; J1885; J2003; J2210; J2250; J2405; J2704; J2791; J3010; J7030; 01965; 99140; J7120